=== PATIENT | male | born 1960 | race African-American/Black ===

== ENCOUNTER 2019-10-21 15:46 | Inpatient (IN) | payer BC ==
[2019-10-21 18:55] VITALS: BMI 29.5
[2019-10-21] MEDS ORDERED: MELATONIN 5 MG TABLETS PO PRN ×2 (22:00→22:26)
--- NOTE | 2019-10-21 22:16 | HP ---
CIWA Score Nausea/Vomitin (vomiting x 3) Muscle Tremors: 3 Anxiety: 3 Agitation: 0-Normal Activity Paroxysmal Sweats: 3 Orientation: 0-Oriented Tacttile Disturbances: 0-None Auditory Disturbances: 0-None Visual Disturbances: 0-None Headache: 3-Moderate CIWA-Ar Total Score: 15 - Admission Criteria OASAS Guidelines: Admission for Medically Managed Detox: Requires at least one of the followin. CIWA greater than 12 2. Seizures within the past 24 hours 3. Delirium tremens within the past 24 hours 4. Hallucinations within the past 24 hours 5. Acute intervention needed for co occurring medical disorder 6. Acute intervention needed for co occurring psychiatric disorder 7. Severe withdrawal that cannot be handled at a lower level of care (continued vomiting, continued diarrhea, abnormal vital signs) requiring intravenous medication and/or fluids 8. Admitting History and Physical - Smoking History Smoking history: Never smoked Have you smoked in the past 12 months: No - Alcohol/Substance Use Hx Alcohol Use: Yes Admission ROS [facility] - [facility] Chief Complaint: Alcohol withdrawal symptoms Allergies/Adverse Reactions: Allergies Allergy/AdvReac Type Severity Reaction Status Date / Time No Known Allergies Allergy Verified 10/21/19 18:44 History of Present Illness: 58 years old male with a long history of alcohol dependence is seeking admission to detox. Patient's last admission to [facility] was in September 2016 and his last admission was at [facility] in January 2018. His last blackout was in September 2019. He denies past medical history and states that he feels very anxious but has not been diagnosed with anxiety. He denies suicidal ideation at this time Exam Limitations: No Limitations - Ebola screening Have you traveled outside of the country in the last 21 days: No (N) Have you had contact with anyone from an Ebola affected area: No Do you have a fever: No - Review of Systems Constitutional: Chills, Malaise, Night Sweats, Changes in sleep EENT: reports: No Symptoms Reported Respiratory: reports: No Symptoms reported Cardiac: reports: No Symptoms Reported GI: reports: Poor Appetite, Poor Fluid Intake, Vomiting, Abdominal cramping : reports: No Symptoms Reported Musculoskeletal: reports: No Symptoms Reported Integumentary: reports: Dryness, Flushing Neuro: reports: Headache, Tremors (mild) Endocrine: reports: No Symptoms Reported Hematology: reports: No Symptoms Reported Psychiatric: reports: Mood/Affect Appropiate, Orientated x3, Anxious Other Systems: Reviewed and Negative Patient History - Patient Medical History Hx Anemia: No Hx Asthma: No Hx Chronic Obstructive Pulmonary Disease (COPD): No Hx Cancer: No Hx Cardiac Disorders: No Hx Congestive Heart Failure: No Hx Hypertension: No Hx Hypercholesterolemia: No Hx Pacemaker: No HX Cerebrovascular Accident: No Hx Seizures: No Hx Dementia: No Hx Diabetes: No Hx Gastrointestinal Disorders: No Hx Liver Disease: No Hx Genitourinary Disorders: No Hx Sexually Transmitted Disorders: No Hx Renal Disease (ESRD): No Hx Thyroid Disease: No Hx Human Immunodeficiency Virus (HIV): No Hx Hepatitis C: No Hx Depression: No Hx Suicide Attempt: No (denies) Hx Bipolar Disorder: No Hx Schizophrenia: No - Patient Surgical History Past Surgical History: No Hx Neurologic Surgery: No Hx Cataract Extraction: No Hx Cardiac Surgery: No Hx Lung Surgery: No Hx Abdominal Surgery: No Hx Appendectomy: No Hx Cholecystectomy: No Hx Genitourinary Surgery: No Hx Orthopedic Surgery: No Anesthesia Reaction: No - PPD History Previous Implant?: Yes Documented Results: Negative w/o proof Implanted On Prior [facility] Admission?: Yes Date: 09/28/16 PPD to be Administered?: Yes - Reproductive History Patient is a Female of Child Bearing Age (11 -55 yrs old): No (male) - Smoking Cessation Smoking history: Never smoked Have you smoked in the past 12 months: No Hx Chewing Tobacco Use: No Initiated information on smoking cessation: No - Substance & Tx. History Hx Alcohol Use: Yes Hx Substance Use: No Substance Use Type: Alcohol Hx Substance Use Treatment: Yes ([facility]) - Substances abused Alcohol Substance route: Oral Frequency: Daily Amount used: 1 pint of wisam/ 6 packs of beer. Age of first use: 13 Date of last use: 10/21/19 Admission Physical Exam [facility] - Vital Signs Vital Signs: Vital Signs - 24 hr 10/21/19 18:44 Temperature 97.7 F Pulse Rate 85 Respiratory 16 Rate Blood Pressure 136/79 - Physical General Appearance: Yes: Within Normal Limits HEENTM: Yes: Within Normal Limits, EOMI, Normal ENT Inspection, Normocephalic, CHAPO Respiratory: Yes: Lungs Clear, Normal Breath Sounds, No Respiratory Distress Neck: Yes: Supple Breast: Yes: Breast Exam Deferred Cardiology: Yes: Regular Rhythm, Regular Rate Abdominal: Yes: Within Normal Limits Genitourinary: Yes: Within Normal Limits Back: Yes: Normal Inspection Musculoskeletal: Yes: Within Normal Limits Extremities: Yes: Tremors (mild) Neurological: Yes: Within Normal Limits, Fully Oriented, Alert, Motor Strength 5 /5, Normal Mood/Affect Integumentary: Yes: Warm Lymphatic: Yes: Within Normal Limits - Diagnostic (1) Anxiety Current Visit: Yes Status: Chronic (2) Alcohol dependence with uncomplicated withdrawal Current Visit: Yes Status: Acute Cleared for Admission [facility] - Detox or Rehab [facility] Level of Care: Medically Managed Detox Regimen/Protocol: Valium Breathalyzer - Breathalyzer Breathalyzer: 0.037 Urine Drug Screen - Test Device Lot number: [id number] Expiration date: 06/15/21 - Control Is test valid?: Yes - Results Drug screen NEGATIVE: Yes Inpatient Rehab Admission - Rehab Decision to Admit Inpatient rehab admission?: No
[2019-10-21] MEDS ORDERED: guaiFENesin 200 MG/10 ML 10 ML UNIT-DOSE CUPS PO PRN (22:22)
[2019-10-21] MEDS ORDERED: MAGNESIUM HYDROX 2400MG/30ML ORAL SUSPENSION 30 ML CUP PO PRN ×2 (22:22→22:26)
[2019-10-21] MEDS ORDERED: IBUPROFEN 400 MG TABLET (FP) PO PRN ×2 (22:22→22:26)
[2019-10-21] MEDS ORDERED: ACETAMINOPHEN 325 MG TABLET (FP) PO PRN ×3 (22:22→22:26)
[2019-10-21] MEDS ORDERED: LOPERAMIDE HCL 2 MG CAPSULE PO PRN (22:22)
[2019-10-21] MEDS ORDERED: MAG HYDROX/AL HYDROX/SIMETH 30 ML UNIT-DOSE CUP PO PRN ×2 (22:22→22:26)
[2019-10-21] MEDS ORDERED: MENTHOL/PHENOL 1 EACH UD MM PRN ×2 (22:22→22:26)
[2019-10-21] MEDS ORDERED: MAGNESIUM CITRATE 300 ML BOTTLE PO PRN ×2 (22:22→22:26)
[2019-10-21] MEDS ORDERED: P-EPHED 60MG/TRIPROLIDI 2.5MG TABLET PO PRN (22:22)
[2019-10-21] MEDS ORDERED: METHOCARBAMOL 500 MG TABLET PO PRN (22:26)
[2019-10-21] MEDS ORDERED: diazePAM 5 MG TABLET PO PRN (22:26)
[2019-10-21] MEDS ORDERED: BISMUTH SUBSALICYLATE 524 MG/30 ML UD PO PRN (22:26)
[2019-10-21] MEDS ORDERED: hydrOXYzine PAMOATE 25 MG CAPSULE (FP) PO PRN (22:26)
[2019-10-22] MEDS: diazePAM 5 MG TABLET PO SCH ×4 (00:03→21:35)
[2019-10-22] MEDS ORDERED: PRENATAL VITAMINS W/ FOLIC ACID TABLET (FP) PO SCH (10:00)
[2019-10-22 10:36] LABS: HEMATOCRIT 38.1 % (35.4-49); HEMOGLOBIN 12.6 GM/dL (11.7-16.9); MCH 27.6 pg (25.7-33.7); MEAN CELL VOLUME 83.6 fl (80-96); MEAN PLT VOLUME 6.5 fl (7.5-11.1); PLATELET COUNT 371 K/MM3 (134-434); RBC 4.56 M/mm3 (4.00-5.60); RDW 14.7 % (11.9-15.9); WHITE BLOOD COUNT 7.2 K/mm3 (4.0-10.0)
[2019-10-22 10:47] LABS: ALBUMIN 3.2 g/dl (3.4-5.0); BILIRUBIN,TOTAL 0.2 mg/dL (0.2-1); BLOOD UREA NITROGEN 12.8 mg/dL (7-18); CALCIUM 8.5 mg/dL (8.5-10.1); POTASSIUM 3.6 mmol/L (3.5-5.1); TOT PROT 6.6 g/dl (6.4-8.2)
[2019-10-22] MEDS: PRENATAL VITAMINS W/ FOLIC ACID TABLET (FP) PO SCH (10:50)
--- NOTE | 2019-10-22 16:48 | PN ---
S CIWA - CIWA Score Nausea/Vomitin Muscle Tremors: 3 Anxiety: 2 Agitation: 0-Normal Activity Paroxysmal Sweats: No Perspiration Orientation: 0-Oriented Tacttile Disturbances: 0-None Auditory Disturbances: 0-None Visual Disturbances: 2-Mild Sensitivity Headache: 2-Mild CIWA-Ar Total Score: 11 S Progress Note (SOAP) Subjective: Fatigue, Anxious, Tremors, Nausea. Objective: PATIENT A & O X 3. IN NO ACUTE DISTRESS. 10/22/19 16:47 Vital Signs Temperature 97.5 F L 10/22/19 14:00 Pulse Rate 71 10/22/19 14:00 Respiratory Rate 18 10/22/19 14:00 Blood Pressure 156/83 10/22/19 14:00 O2 Sat by Pulse Oximetry (%) Laboratory Tests 10/22/19 10/22/19 10/22/19 07:40 07:40 07:40 WBC 7.2 RBC 4.56 Hgb 12.6 Hct 38.1 MCV 83.6 MCH 27.6 MCHC 33.0 RDW 14.7 Plt Count 371 MPV 6.5 L Sodium 140 Potassium 3.6 Chloride 102 Carbon Dioxide 31 Anion Gap 7 L BUN 12.8 Creatinine 1.0 Est GFR (CKD-EPI)AfAm 96.40 Est GFR (CKD-EPI)NonAf 83.18 Random Glucose 87 Calcium 8.5 Total Bilirubin 0.2 AST 25 ALT 37 Alkaline Phosphatase 74 Total Protein 6.6 Albumin 3.2 L RPR Titer Nonreactive LABS NOTED. Assessment: 10/22/19 16:47 WITHDRAWAL SYMPTOMS. Plan: CONTINUE DETOX.
[2019-10-22] MEDS: THIAMINE HCL 100 MG TABLET (FP) PO SCH (21:35)
[2019-10-22] MEDS ORDERED: THIAMINE HCL 100 MG TABLET (FP) PO SCH (22:00)
--- NOTE | 2019-10-22 23:26 | EKG ---
Test Reason : Blood Pressure : / mmHG Vent. Rate : 072 BPM Atrial Rate : 072 BPM P-R Int : 148 ms QRS Dur : 086 ms QT Int : 418 ms P-R-T Axes : 066 037 -41 degrees QTc Int : 457 ms SINUS RHYTHM WITH PREMATURE ATRIAL COMPLEXES WITH ABERRANT CONDUCTION T WAVE ABNORMALITY, CONSIDER LATERAL ISCHEMIA ABNORMAL ECG WHEN COMPARED WITH ECG OF 22-OCT-2019 00:02, PREMATURE VENTRICULAR COMPLEXES ARE NO LONGER PRESENT Confirmed by CE TORRES, KACEY ([id number]) on 10/22/2019 11:25:59 PM Referred By: Confirmed By:KACEY ENCINAS MD
--- NOTE | 2019-10-22 23:27 | EKG ---
Test Reason : Blood Pressure : / mmHG Vent. Rate : 073 BPM Atrial Rate : 073 BPM P-R Int : 150 ms QRS Dur : 082 ms QT Int : 402 ms P-R-T Axes : 055 054 025 degrees QTc Int : 442 ms SINUS RHYTHM WITH OCCASIONAL PREMATURE VENTRICULAR COMPLEXES AND PREMATURE ATRIAL COMPLEXES T WAVE ABNORMALITY, CONSIDER LATERAL ISCHEMIA ABNORMAL ECG NO PREVIOUS ECGS AVAILABLE Confirmed by KACEY ENCINAS MD ([id number]) on 10/22/2019 11:26:42 PM Referred By: Confirmed By:KACEY ENCINAS MD
[2019-10-23] MEDS: diazePAM 5 MG TABLET PO SCH ×2 (06:24→18:04)
[2019-10-23] MEDS: PRENATAL VITAMINS W/ FOLIC ACID TABLET (FP) PO SCH (10:15)
[2019-10-23] MEDS ORDERED: cloNIDine HCL 0.1 MG TABLET PO PRN (17:18)
--- NOTE | 2019-10-23 17:18 | PN ---
[facility] CIWA - CIWA Score Nausea/Vomitin-Mild Nausea/No Vomiting Muscle Tremors: 2 Anxiety: 2 Agitation: 2 Paroxysmal Sweats: 2 Orientation: 0-Oriented Tacttile Disturbances: 0-None Auditory Disturbances: 0-None Visual Disturbances: 0-None Headache: 0-None Present CIWA-Ar Total Score: 9 BHS Progress Note (SOAP) Subjective: Feels ok Objective: 10/23/19 17:17 Last Vital Signs Temp Pulse Resp BP Pulse Ox 98.2 F 81 18 154/77 10/23/19 15:12 10/23/19 15:12 10/23/19 15:12 10/23/19 15:12 Elevated b/p: has htn (on med) Laboratory Tests 10/22/19 10/22/19 10/22/19 07:40 07:40 07:40 WBC 7.2 RBC 4.56 Hgb 12.6 Hct 38.1 MCV 83.6 MCH 27.6 MCHC 33.0 RDW 14.7 Plt Count 371 MPV 6.5 L Sodium 140 Potassium 3.6 Chloride 102 Carbon Dioxide 31 Anion Gap 7 L BUN 12.8 Creatinine 1.0 Est GFR (CKD-EPI)AfAm 96.40 Est GFR (CKD-EPI)NonAf 83.18 Random Glucose 87 Calcium 8.5 Total Bilirubin 0.2 AST 25 ALT 37 Alkaline Phosphatase 74 Total Protein 6.6 Albumin 3.2 L RPR Titer Nonreactive Labs reviewed Assessment: 10/23/19 17:17 Withdrawal sxs Plan: Continue detox Encouraged PO water intake Detox protocol adusted due to increased CIWA Elevated b/p: start clonidine prn and for withdrawal sxs
[2019-10-23] MEDS: THIAMINE HCL 100 MG TABLET (FP) PO SCH (22:07)
[2019-10-24] MEDS: diazePAM 5 MG TABLET PO SCH ×2 (05:26→17:30)
[2019-10-24] MEDS ORDERED: diazePAM 5 MG TABLET PO ONE (06:00)
[2019-10-24] MEDS: PRENATAL VITAMINS W/ FOLIC ACID TABLET (FP) PO SCH (10:12)
--- NOTE | 2019-10-24 11:23 | PN ---
S CIWA - CIWA Score Nausea/Vomitin-No Nausea/No Vomiting Muscle Tremors: 2 Anxiety: 1-Mildly Anxious Agitation: 1-Slight > Activity Paroxysmal Sweats: No Perspiration Orientation: 0-Oriented Tacttile Disturbances: 0-None Auditory Disturbances: 0-None Visual Disturbances: 0-None Headache: 0-None Present CIWA-Ar Total Score: 4 BHS Progress Note (SOAP) Subjective: feeling better little anxiety Objective: 10/24/19 11:22 Vital Signs Temperature 96 F L 10/24/19 08:32 Pulse Rate 76 10/24/19 08:32 Respiratory Rate 18 10/24/19 08:32 Blood Pressure 135/81 10/24/19 08:32 O2 Sat by Pulse Oximetry (%) Laboratory Tests 10/22/19 10/22/19 10/22/19 07:40 07:40 07:40 WBC 7.2 RBC 4.56 Hgb 12.6 Hct 38.1 MCV 83.6 MCH 27.6 MCHC 33.0 RDW 14.7 Plt Count 371 MPV 6.5 L Sodium 140 Potassium 3.6 Chloride 102 Carbon Dioxide 31 Anion Gap 7 L BUN 12.8 Creatinine 1.0 Est GFR (CKD-EPI)AfAm 96.40 Est GFR (CKD-EPI)NonAf 83.18 Random Glucose 87 Calcium 8.5 Total Bilirubin 0.2 AST 25 ALT 37 Alkaline Phosphatase 74 Total Protein 6.6 Albumin 3.2 L RPR Titer Nonreactive aaox3 ambulating no acute distress Assessment: 10/24/19 11:22 mild withdrawals Plan: continue detox d/c in am
[2019-10-24] MEDS: THIAMINE HCL 100 MG TABLET (FP) PO SCH (22:02)
[2019-10-25] MEDS ORDERED: diazePAM 5 MG TABLET PO ONE (06:00)
[2019-10-25 06:20] VITALS: TEMP 97.7
[2019-10-25 09:23] VITALS: BP 140/79; PULSE 92
[2019-10-25] MEDS: PRENATAL VITAMINS W/ FOLIC ACID TABLET (FP) PO SCH (09:45)
--- NOTE | 2019-10-25 09:45 | DS ---
[facility] Detox Discharge Summary Admission Date: 10/21/19 Discharge Date: 10/25/19 - History Present History: Alcohol Dependence - Physical Exam Results Vital Signs: Vital Signs Temperature 97.7 F 10/25/19 09:23 Pulse Rate 92 H 10/25/19 09:23 Respiratory Rate 10/25/19 09:23 Blood Pressure 140/79 10/25/19 09:23 O2 Sat by Pulse Oximetry (%) Pertinent Admission Physical Exam Findings: Vital Signs Temperature 97.7 F 10/25/19 09:23 Pulse Rate 92 H 10/25/19 09:23 Respiratory Rate 10/25/19 09:23 Blood Pressure 140/79 10/25/19 09:23 O2 Sat by Pulse Oximetry (%) Laboratory Tests 10/22/19 10/22/19 10/22/19 07:40 07:40 07:40 WBC 7.2 RBC 4.56 Hgb 12.6 Hct 38.1 MCV 83.6 MCH 27.6 MCHC 33.0 RDW 14.7 Plt Count 371 MPV 6.5 L Sodium 140 Potassium 3.6 Chloride 102 Carbon Dioxide 31 Anion Gap 7 L BUN 12.8 Creatinine 1.0 Est GFR (CKD-EPI)AfAm 96.40 Est GFR (CKD-EPI)NonAf 83.18 Random Glucose 87 Calcium 8.5 Total Bilirubin 0.2 AST 25 ALT 37 Alkaline Phosphatase 74 Total Protein 6.6 Albumin 3.2 L RPR Titer Nonreactive aaox3 ambulating no acute distress - Treatment Hospital Course: Detox Protocol Followed, Detoxed Safely, Responded well, Discharged Condition Good, Rehab Referral Accepted Patient has Accepted a Rehab Referral to: pt declined rehab; referral provided - Medication Discharge Medications: Ambulatory Orders NK [No Known Home Medication] 09/26/16 - Diagnosis (1) Alcohol dependence with uncomplicated withdrawal Current Visit: Yes Status: Chronic (2) Anxiety Current Visit: Yes Status: Chronic - AMA Did Patient Leave Against Medical Advice: No
== END 2019-10-25 09:44 | disposition home or self-care (01) | DRG 775 ==
LOC: YASAS 15:46 → Y6N 22:50
PROVIDERS: ADMIT Allergy & Immunology; ATTEND Allergy & Immunology
PROC: HZ2ZZZZ Detoxification Services for Substance Abuse Treatment (ICD-10-PCS; principal; 2019-10-21)
DX: F10.230 Alcohol dependence with withdrawal, uncomplicated (principal); F41.9 Anxiety disorder, unspecified
CPT/HCPCS: 36415; 80053; 85027; 86593; 93005; 93010; J0735